=== PATIENT | female | born 1980 | race American Indian/Alaskan Native ===

== ENCOUNTER 2017-12-29 14:23 | Emergency (ER) | payer OTHER, SELFPAY ==
--- NOTE | 2017-12-29 16:45 | RAD REPORT ---
EXAM DESCRIPTION: RAD - Foot Right 3 View - 12/29/2017 4:25 pm CLINICAL HISTORY: Right foot pain COMPARISON: None. FINDINGS: Prominent calcaneal spurs are noted. No acute fracture or dislocation is seen. No aggressi ve marrow lesion. Continued clinical concern for possible stress fracture would warrant MRI foot eval uation, which is most sensitive imaging study for that condition.
--- NOTE | 2017-12-29 16:59 | EDPHYS ---
Physician Documentation [facility] Name: Sweta Dai Age: 37 yrs Sex: Female : 1980 Arrival Date: 12/29/2017 Time: 14:25 Bed 9 Private MD: ED Physician Lit Luu HPI: 12/29 16:57 This 37 yrs old Female presents to ER via Wheelchair with complaints of kb Foot Pain. 16:57 The patient presents with pain, that is acute. The complaints affect the right foot. kb Context: The problem was sustained outdoors, resulted from walking. Onset: The symptoms/episode began/occurred 3 year(s) ago, and became worse 2 day(s) ago. Modifying factors: The symptoms are alleviated by nothing, the symptoms are aggravated by weight bearing. Associated signs and symptoms: The patient has no apparent associated signs or symptoms. Severity of symptoms: At their worst the symptoms were moderate, in the emergency department the symptoms are unchanged. The patient has not experienced similar symptoms in the past. The patient has not recently seen a physician. Historical: - Allergies: 14:38 Lyrica; la1 14:38 Toradol; la1 14:38 Lisinopril; la1 14:38 BuSpar; la1 14:38 Paxil; la1 - PMHx: 14:38 Fibromyalgia; cervial stenosis; neuropathy; slipped disk; la1 - Immunization history:: Adult Immunizations up to date. - Social history:: Smoking status: Patient/guardian denies using tobacco. ROS: 16:56 Constitutional: Negative for fever, chills, and weight loss, Cardiovascular: Negative kb for chest pain, palpitations, and edema, Respiratory: Negative for shortness of breath, cough, wheezing, and pleuritic chest pain, Abdomen/GI: Negative for abdominal pain, nausea, vomiting, diarrhea, and constipation, Skin: Negative for injury, rash, and discoloration, Neuro: Negative for headache, weakness, numbness, tingling, and seizure. 16:56 MS/extremity: Positive for pain, of the lateral side of right foot. Exam: 16:56 Constitutional: This is a well developed, well nourished patient who is awake, alert, kb and in no acute distress. Head/Face: Normocephalic, atraumatic. Chest/axilla: Normal chest wall appearance and motion. Nontender with no deformity. No lesions are appreciated. Cardiovascular: Regular rate and rhythm with a normal S1 and S2. No gallops, murmurs, or rubs. Normal PMI, no JVD. No pulse deficits. Respiratory: Lungs have equal breath sounds bilaterally, clear to auscultation and percussion. No rales, rhonchi or wheezes noted. No increased work of breathing, no retractions or nasal flaring. Abdomen/GI: Soft, non-tender, with normal bowel sounds. No distension or tympany. No guarding or rebound. No evidence of tenderness throughout. Skin: Warm, dry with normal turgor. Normal color with no rashes, no lesions, and no evidence of cellulitis. MS/ Extremity: Pulses equal, no cyanosis. Neurovascular intact. Full, normal range of motion. Neuro: Awake and alert, GCS 15, oriented to person, place, time, and situation. Cranial nerves II-XII grossly intact. Motor strength 5/5 in all extremities. Sensory grossly intact. Cerebellar exam normal. Normal gait. Vital Signs: 14:38 BP 112 / 96; Pulse 85; Resp 16; Temp 97.2; Pulse Ox 100% on R/A; Weight 134.26 kg; la1 Height 5 ft. 4 in. (162.56 cm); 14:38 Body Mass Index 50.81 (134.26 kg, 162.56 cm) la1 MDM: 15:30 Patient medically screened. [facility] 16:56 Data reviewed: vital signs, nurses notes. Data interpreted: Pulse oximetry: on room air kb is 100 %. Interpretation: normal. Counseling: I had a detailed discussion with the patient and/or guardian regarding: the historical points, exam findings, and any diagnostic results supporting the discharge/admit diagnosis, radiology results, the need for outpatient follow up, a orthopedic surgeon, to return to the emergency department if symptoms worsen or persist or if there are any questions or concerns that arise at home. 12/29 15:39 Order name: Foot Right 3 View XRAY; Complete Time: 16:54 kb Administered Medications: 17:18 Drug: traMADol 50 mg Route: PO; la1 17:18 Follow up: Response: Medication administered at discharge. [facility] Disposition: 12/30 08:57 Co-signature as Attending Physician, Lit Luu MD I agree with the assessment and cole plan of care. Disposition: 12/29/17 16:59 Discharged to Home. Impression: Pain in right foot. - Condition is Stable. - Discharge Instructions: Musculoskeletal Pain. - Medication Reconciliation Form, Thank You Letter, Antibiotic Education, Prescription Opioid Use form. - Follow up: Emergency Department; When: As needed; Reason: Worsening of condition. Follow up: Private Physician; When: 2 - 3 days; Reason: Recheck today's complaints, Continuance of care, Re-evaluation by your physician. Signatures: Dispatcher [employer] EDElena Allred, TOBACCO STRIPPER HAND-C LUNA-Lit Diez MD MD cha Attema, Lee, RN RN la1
--- NOTE | 2017-12-29 16:59 | ER ---
Nurse's Notes [facility] Name: Sweta Dai Age: 37 yrs Sex: Female : 1980 Arrival Date: 12/29/2017 Time: 14:25 Bed 9 Private MD: Diagnosis: Pain in right foot Presentation: 12/29 14:36 Presenting complaint: Patient states: I think I have a stress fracture in my right la1 foot. Pain for the past few days. Transition of care: patient was not received from another setting of care. Onset of symptoms was December 29, 2017. Initial Sepsis Screen: Does the patient meet any 2 criteria? No. Patient's initial sepsis screen is negative. Does the patient have a suspected source of infection? No. Patient's initial sepsis screen is negative. Care prior to arrival: None. 14:36 Method Of Arrival: Wheelchair la1 14:36 Acuity: MIRA 4 la1 Historical: - Allergies: 14:38 Lyrica; la1 14:38 Toradol; la1 14:38 Lisinopril; la1 14:38 BuSpar; la1 14:38 Paxil; la1 - PMHx: 14:38 Fibromyalgia; cervial stenosis; neuropathy; slipped disk; la1 - Immunization history:: Adult Immunizations up to date. - Social history:: Smoking status: Patient/guardian denies using tobacco. Screenin:12 Abuse screen: Denies threats or abuse. Nutritional screening: No deficits noted. la1 Tuberculosis screening: No symptoms or risk factors identified. Fall Risk None identified. Assessment: 17:11 General: Appears in no apparent distress. Behavior is calm, cooperative. Pain: la1 Complains of pain in lateral side of right foot. Neuro: Level of Consciousness is awake, alert, obeys commands, Oriented to person, place, time, situation. Cardiovascular: Capillary refill < 3 seconds Patient's skin is warm and dry. Respiratory: Airway is patent Respiratory effort is even, unlabored. GI: No signs and/or symptoms were reported involving the gastrointestinal system. : No signs and/or symptoms were reported regarding the genitourinary system. Musculoskeletal: Circulation, motion, and sensation intact. Vital Signs: 14:38 BP 112 / 96; Pulse 85; Resp 16; Temp 97.2; Pulse Ox 100% on R/A; Weight 134.26 kg; la1 Height 5 ft. 4 in. (162.56 cm); 14:38 Body Mass Index 50.81 (134.26 kg, 162.56 cm) la1 ED Course: 14:25 Patient arrived in ED. as 14:37 Triage completed. la1 14:38 Arm band placed on left wrist. la1 15:27 Elena Lester FNP-C is [facility]. kb 15:27 Lit Luu MD is Attending Physician. kb 16:21 X-ray completed. Portable x-ray completed in exam room. Patient tolerated procedure ag1 well. 16:25 Foot Right 3 View XRAY In Process Unspecified. EDMS 17:12 Call light in reach. la1 17:12 No provider procedures requiring assistance completed. Patient did not have IV access la1 during this emergency room visit. Administered Medications: 17:18 Drug: traMADol 50 mg Route: PO; la1 17:18 Follow up: Response: Medication administered at discharge. la1 Outcome: 16:59 Discharge ordered by . kb 17:18 Discharged to home ambulatory. la1 17:18 Condition: stable 17:18 Discharge instructions given to patient, Instructed on discharge instructions, follow up and referral plans. Demonstrated understanding of instructions, follow-up care. 17:18 Patient left the ED. la1 Signatures: Dispatcher [employer] EDKY Elena Lester FNP-C FNP-Ckb Martinez, Amelia as Attema, Lee RN RN la1 Qing Moffett ag1
[2017-12-29] MEDS ORDERED: TRAMADOL HCL 50 MG TAB ONE (17:13)
== END 2017-12-29 17:18 | disposition home or self-care (01) ==
LOC: ER 14:23
DX: M79.671 Pain in right foot (principal)
CPT/HCPCS: 99283

== ENCOUNTER 2018-01-08 12:56 | Inpatient (IN) | payer SELFPAY ==
[2018-01-08] MEDS ORDERED: MORPHINE 4 MG/ML SYR ONE ×2 (15:45→20:28)
[2018-01-08] MEDS ORDERED: NA CHLORIDE 0.9% 1,000 ML ONE ×2 (15:46→19:29)
[2018-01-08] MEDS ORDERED: ONDANSETRON 4 MG/2 ML VIAL ONE (15:46)
[2018-01-08 15:51] LABS: Absolute Lymphocytes (CBC) 1.9 K/uL (0.7-4.9); Absolute Monocytes 0.5 K/uL (0.1-1.3); Basophils % 0.7 % (0-1.3); Eosinophils % 1.3 % (0-4.4); Hematocrit 39.3 % (36.0-45.0); Lymphocytes % 22.5 % (15.3-44.8); MCH 27.8 pg (27.0-35.0); MCV 84.1 fL (80-100); MPV 9.2 fL (7.6-11.3); Monocytes % 5.5 % (3.3-12.3); RBC Red Blood Cell Count 4.67 M/uL (3.86-4.86)
[2018-01-08 16:09] LABS: Bicarbonate 26 mEq/L (21-31); Glucose Level 89 mg/dL (65-120); Lipase 25 U/L (22-51); Potassium 3.3 mEq/L (3.6-5.0); Sodium Level 137 mEq/L (135-145)
[2018-01-08 16:15] LABS: ALT/SGPT 20 IU/L (10-60); AST/SGOT 23 IU/L (10-42); Albumin 3.6 g/dL (3.2-5.5); Alkaline Phosphatase 52 IU/L (42-121); Amylase Level 17 U/L (28-100); BUN Blood Urea Nitrogen 9 mg/dL (6-20); Bilirubin Direct 0.1 mg/dL (0-0.2); Bilirubin Total 0.6 mg/dL (0.3-1.2); Protein, Total 6.8 g/dL (6.0-8.3)
--- NOTE | 2018-01-08 16:36 | RAD REPORT ---
EXAM DESCRIPTION: CT - Stone Protocol - 01/08/2018 4:29 pm CLINICAL HISTORY: Flank pain. Right upper quadrant pain. COMPARISON: None. TECHNIQUE: Axial images were obtained without oral or IV contrast. Lack of contrast limits solid org an and vascular assessment. The [id number] spans the entirety of the system partially obscuring uppermost abdomen and lung bases. Coronal reformatted images were obtained and reviewed. All CT scans are performed using dose optimization technique as appropriate and may include automated exposure control or mA/KV adjustment according to patient size. FINDINGS: The lower lung alegria are clear. Imaged portions of the liver and spleen show no suspicious findings on non-contrast imaging. The panc reas and adrenal glands are normal. No pathologic lymphadenopathy in the abdomen or pelvis. No urinary tract stones or obstructive uropathy. No bowel obstruction, free air, free fluid or abscess. Normal appendix noted. No significant bony abnormality. The left ovary appears prominent in size measuring 5.3 x 4.3 cm. IMPRESSION: No urinary tract stones or obstructive uropathy. Prominent left ovary suspected in the left adnexal region measuring 5.3 x 4.3 cm. Nonemergent pelvic ultrasound followup is suggested for further assessment.
[2018-01-08 16:45] LABS: Urine Blood NEGATIVE (NEG); Urine Glucose NEGATIVE (NEG); Urine Protein NEGATIVE (NEG); Urine Specific Gravity 1.025 (1.005-1.030)
[2018-01-08 16:54] LABS: Urine Amorphous Sediment 1+ /HPF (NONE SEEN); Urine Bacteria <20 /HPF (<20); Urine Culture Reflex Order NOT NEEDED; Urine Mucus 1+ /HPF (NONE SEEN); Urine RBC <5 /HPF (NONE SEEN)
--- NOTE | 2018-01-08 18:49 | RAD REPORT ---
EXAM DESCRIPTION: US - Abdomen Exam Limited - 01/08/2018 5:56 pm CLINICAL HISTORY: Abdominal pain. COMPARISON: None. FINDINGS: The gallbladder contains many stones. The gallbladder wall is not thickened. The common bile duct measures 6.5 millimeters IMPRESSION: Cholelithiasis without evidence of cholecystitis Mild dilatation of the common bile duct may be secondary to a nonvisualized stone within the duct
[2018-01-08] MEDS ORDERED: METRONIDAZOLE 500mg IVPB 500 MG/100 ML BAG IV ONE (19:42)
[2018-01-08] MEDS ORDERED: CIPROFLOXACIN 400mg IV 400 MG/200 ML BAG IV ONE (19:42)
--- NOTE | 2018-01-08 19:42 | EDPHYS ---
Physician Documentation [facility] Name: Sweta Dai Age: 37 yrs Sex: Female : 1980 Arrival Date: 01/08/2018 Time: 12:59 Bed 30 Private MD: None, None ED Physician Dontrell Griffin HPI: 01/08 15:30 This 37 yrs old Female presents to ER via Wheelchair with complaints of cp Abdominal Pain. 15:30 The patient presents with abdominal pain in the right upper quadrant. cp 15:30 Onset: The symptoms/episode began/occurred this morning. cp 15:30 The symptoms radiate to right back. Associated signs and symptoms: Pertinent positives: cp nausea, vomiting. Modifying factors: the symptoms are aggravated by pressure. IT COMPLIANCE MANAGER: 01/09 00:06 sully rk2 Historical: - Allergies: 01/08 13:22 BuSpar; aj 13:22 Lisinopril; aj 13:22 Lyrica; aj 13:22 Paxil; aj 13:22 Toradol; aj - Home Meds: 13:22 None [Active]; aj - PMHx: 13:22 cervial stenosis; Fibromyalgia; neuropathy; slipped disk; Back pain; aj - PSHx: 13:22 ; aj - Immunization history:: Adult Immunizations up to date. - Social history:: Smoking status: Patient uses tobacco products, denies chronic smoking, but will smoke occasionally. ROS: 15:35 Constitutional: Negative for body aches, chills, fever, poor PO intake. cp 15:35 Eyes: Negative for injury, pain, redness, and discharge. cp 15:35 ENT: Negative for drainage from ear(s), ear pain, sore throat, difficulty swallowing, difficulty handling secretions. 15:35 Cardiovascular: Negative for chest pain, edema, palpitations. 15:35 Respiratory: Negative for cough, shortness of breath, wheezing. 15:35 Abdomen/GI: Positive for abdominal pain, nausea, of the right upper quadrant, Negative for diarrhea, constipation, active vomiting. 15:35 Back: Positive for radiated pain, of the right mid back and right low back. 15:35 : Negative for urinary symptoms, vaginal bleeding, vaginal discharge. 15:35 Skin: Negative for cellulitis, rash. 15:35 Neuro: Negative for altered mental status, headache, weakness. 15:35 All other systems are negative. Exam: 15:42 Head/Face: Normocephalic, atraumatic. cp 15:42 Constitutional: The patient appears alert, awake, non-diaphoretic, non-toxic, well developed, well nourished, uncomfortable. 15:42 Eyes: Periorbital structures: appear normal, Conjunctiva: normal, no exudate, no cp injection, Sclera: no appreciated abnormality, Lids and lashes: appear normal, bilaterally. 15:42 ENT: External ear(s): are unremarkable, Nose: is normal, Mouth: Lips: moist, Oral mucosa: pink and intact, moist, Posterior pharynx: is normal, airway is patent, no erythema, no exudate. 15:42 Neck: ROM/movement: is normal, is supple, without pain, no range of motions limitations, no nuchal rigidity. 15:42 Chest/axilla: Inspection: normal, Palpation: is normal, no crepitus, no tenderness. 15:42 Cardiovascular: Rate: normal, Rhythm: regular. 15:42 Respiratory: the patient does not display signs of respiratory distress, Respirations: normal, no use of accessory muscles, no retractions, no splinting, no tachypnea, labored breathing, is not present, Breath sounds: are clear throughout, no decreased breath sounds, no stridor, no wheezing. 15:42 Abdomen/GI: Inspection: obese Bowel sounds: active, all quadrants, Palpation: soft, in all quadrants, moderate abdominal tenderness, in the right upper quadrant, rebound tenderness, is not appreciated, voluntary guarding, is elicited in the right upper quadrant, involuntary guarding, is not appreciated. 15:42 Back: pain, that is moderate, of the right mid back and right low back, ROM is normal. 15:42 Skin: cellulitis, is not appreciated, no rash present. 15:42 Neuro: Orientation: to person, place \T\ time. Mentation: lucid, able to follow commands, Cerebellar function: is grossly normal, Motor: moves all fours, strength is normal, Sensation: no obvious gross deficits. Vital Signs: 13:22 BP 144 / 101; Pulse 70; Resp 20; Temp 98.0; Pulse Ox 99% on R/A; Weight 134.26 kg; aj Height 5 ft. 2 in. (157.48 cm); Pain 10/10; 17:00 BP 120 / 70; Pulse 82; Resp 17; Pulse Ox 99% on R/A; rk2 17:33 BP 112 / 90; Pulse 62; Resp 17; Pulse Ox 99% on R/A; rk2 18:30 BP 120 / 72; Pulse 67; Resp 18; Pulse Ox 98% on R/A; rk2 20:00 BP 140 / 102; Pulse 62; Resp 17; Pulse Ox 98% on R/A; rk2 21:00 BP 127 / 91; Pulse 64; Resp 17; Pulse Ox 98% on R/A; rk2 22:00 BP 136 / 75; Pulse 61; Resp 17; Pulse Ox 98% on R/A; rk2 13:22 Body Mass Index 54.14 (134.26 kg, 157.48 cm) aj MDM: 14:57 Patient medically screened. cp 19:28 Physician consultation: Nicholas Gregory MD was called at 19:29, was contacted at 19:29, snw regarding patient's condition. 19:30 Data reviewed: vital signs, nurses notes, lab test result(s), radiologic studies, CT cp scan, ultrasound. 19:30 Response to treatment: the patient's symptoms have mildly improved after treatment, and cp as a result, I will admit patient. 01/08 15:26 Order name: Amylase, Serum; Complete Time: 16:18 cp / 16:18 Interpretation: AJITH 17; Reviewed. cp 01/08 15:26 Order name: Basic Metabolic Panel; Complete Time: 16:18 cp 01/08 16:18 Interpretation: Normal except: K 3.3. cp / 15:26 Order name: CBC with Diff; Complete Time: 16:18 cp / 16:18 Interpretation: Normal except: RDW 16.2. cp / 15:26 Order name: Creatinine for Radiology; Complete Time: 16:18 cp / 15:26 Order name: Hepatic Function; Complete Time: 16:18 cp / 16:18 Interpretation: Within normal limits. cp / 15:26 Order name: Lipase; Complete Time: 16:18 cp 01/08 16:18 Interpretation: Within normal limits: LIP 25. cp 01/08 15:26 Order name: Urine Microscopic Only; Complete Time: 17:07 cp 05/02 17:07 Interpretation: Normal except: SQEPI 5-10; Reviewed. 01/08 15:26 Order name: CT Stone Protocol; Complete Time: 17:07 cp 01/08 17:08 Interpretation: Report reviewed. 01/08 16:24 Order name: Urine Dipstick--Ancillary (enter results); Complete Time: 17:07 [facility] 01/08 16:24 Order name: Urine --Ancillary (enter results); Complete Time: 17:07 2 01/08 17:20 Order name: US Abdomen Limited: RUQ; Complete Time: 19:06 cp 01/08 19:06 Interpretation: Report reviewed. 01/08 15:26 Order name: Urine Test (obtain specimen); Complete Time: 16:20 cp 01/08 15:26 Order name: IV Saline Lock; Complete Time: 16:20 cp 01/08 15:26 Order name: Labs collected and sent; Complete Time: 16:20 cp 01/08 15:26 Order name: Urine Dipstick-Ancillary (obtain specimen); Complete Time: 16:21 cp 01/08 19:29 Order name: NPO; Complete Time: 19:44 snw 01/08 21:57 Order name: CONS Physician Consult EDMS Administered Medications: 16:13 Drug: morphine 4 mg Route: IVP; Site: right antecubital; rk2 22:33 Follow up: Response: No adverse reaction rk2 16:13 Drug: Zofran 4 mg Route: IVP; Site: right antecubital; rk2 22:33 Follow up: Response: No adverse reaction rk2 16:13 Drug: NS 0.9% 1000 ml Route: IV; Rate: 1 bolus; Site: right antecubital; rk2 17:00 Follow up: Response: No adverse reaction; IV Status: Completed infusion rk2 19:49 Drug: metroNIDAZOLE 500 mg Volume: 100 ml; Route: IVPB; Infused Over: 30 mins; Site: rk2 right antecubital; 20:20 Follow up: Response: No adverse reaction; IV Status: Completed infusion rk2 20:35 Drug: NS 0.9% 1000 ml Route: IV; Rate: 125 ml/hr; Site: right antecubital; rk2 20:35 Drug: morphine 4 mg Route: IVP; Site: right antecubital; rk2 22:32 Follow up: Response: No adverse reaction rk2 20:35 Drug: Ciprofloxacin 400 mg Volume: 200 ml; Route: IVPB; Infused Over: 60 mins; Site: rk2 right antecubital; 21:35 Follow up: Response: No adverse reaction; IV Status: Completed infusion rk2 Disposition: 01/08/18 19:41 Hospitalization ordered by Nicholas Gregory for Inpatient Admission. Preliminary diagnosis is Choledocholithiasis. - Bed requested for Telemetry/MedSurg (Inpatient). - Status is Inpatient Admission. rk2 - Condition is Stable. - Problem is new. - Symptoms have improved. UTI on Admission? No Addendum: 01/10/2018 07:06 Co-signature as Attending Physician, Dontrell Griffin MD I agree with the assessment and w a plan of care. Signatures: Dispatcher [employer] EDMS Charlotte Mack RN RN kl Myers, Amanda, RN RN aj Therrien, Shelly, TANK HOUSE OPERATOR-C TANK HOUSE OPERATOR-Csnw Lit Montoya PA PA cp Appiah, William, MD MD wa Kidder, Rhonda, RN RN rk2 Corrections: (The following items were deleted from the chart) 01/08 21:47 19:41 Hospitalization Ordered by Nicholas Gregory MD for Inpatient Admission. Preliminary diagnosis is Choledocholithiasis. Bed requested for Telemetry/MedSurg (Inpatient). Status is Inpatient Admission. Condition is Stable. Problem is new. Symptoms have improved. UTI on Admission? No. [email or web address] 01/09 00:19 01/08 21:47 01/08/2018 19:41 Hospitalization Ordered by Nicholas Gregory MD for Inpatient rk2 Admission. Preliminary diagnosis is Choledocholithiasis. Bed requested for Telemetry/MedSurg (Inpatient). Status is Inpatient Admission. Condition is Stable. Problem is new. Symptoms have improved. UTI on Admission? No. kl
--- NOTE | 2018-01-08 19:42 | ER ---
Nurse's Notes [facility] Name: Sweta Dai Age: 37 yrs Sex: Female : 1980 Arrival Date: 01/08/2018 Time: 12:59 Bed 30 Private MD: None, None Diagnosis: Choledocholithiasis Presentation: 01/08 13:19 Presenting complaint: Patient states: Gallstones for 1.5 years. Patient reports she has aj not followed up with surgeon. Reports RUQ pain that has gotten worse after eating last night. Transition of care: patient was not received from another setting of care. Onset of symptoms was June 2017. Initial Sepsis Screen: Does the patient meet any 2 criteria? No. Patient's initial sepsis screen is negative. Does the patient have a suspected source of infection? No. Patient's initial sepsis screen is negative. Care prior to arrival: None. 13:19 Method Of Arrival: Wheelchair aj 13:19 Acuity: MIRA 3 aj 13:24 Note Patient refused ultrasound. aj 14:03 Note Patient observed sleeping comfortably in wheelchair, in NAD. aj 14:10 Note Attempted to reassess patient in lobby. Patient was not responsive to verbal aj stimuli, as name was spoken 4 times with no response. Sternal rub applied, patient woke up immediately and stated she is in pain. 14:26 Note Patient stated to me while I was bringing another patient back to a room, "why did aj you wake me up, this shit hurts." This nurse explained to patient that she had been unresponsive when her name was called 4 times and that I needed to assess her mental status. Triage Assessment: 13:22 General: Appears in no apparent distress. uncomfortable, obese, Behavior is calm, aj cooperative, appropriate for age. Pain: Complains of pain in right upper quadrant Pain currently is 10 out of 10 on a pain scale. Neuro: Level of Consciousness is awake, alert, obeys commands, Oriented to person, place, time, situation, Appropriate for age. Respiratory: Airway is patent Respiratory effort is even, unlabored, Respiratory pattern is regular, symmetrical. GI: Abdomen is obese, Reports upper abdominal pain, nausea. Derm: Skin is intact, is healthy with good turgor, Skin is pink, warm \\T\\ dry. normal. 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 - Social history:: Smoking status: Patient uses tobacco products, denies chronic smoking, but will smoke occasionally. Screenin:20 Abuse screen: Denies threats or abuse. rk2 16:20 Nutritional screening: No deficits noted. Tuberculosis screening: No symptoms or risk rk2 factors identified. Fall Risk None identified. Assessment: 17:00 General: Appears in no apparent distress. well developed, well nourished, Behavior is rk2 cooperative, crying. Pain: Complains of pain in abdomen and right upper quadrant. Neuro: Level of Consciousness is alert, obeys commands, Oriented to person, place, time, situation. Respiratory: Airway is patent Respiratory effort is even, unlabored. GI: Bowel sounds Abd is soft Abdomen is tender to palpation. Derm: Skin is pink, warm \\T\\ dry. 17:37 Reassessment: Pt. taken to US. rk2 18:40 Reassessment: Pt. resting in room \\T\\ this time... appears to be in no obvious distress. rk2 Still c/o of pain, notified provider. 19:30 Reassessment: Pt. resting in room \\T\\ this time, appears to be in no obvious distress... rk2 no needs voiced. Iv fluids infusing. 21:00 Reassessment: Pt. resting in room... appears to be in no distress. No needs voiced. No rk2 change from original assessment. 22:00 Reassessment: Pt. resting in room, family \\T\\ bedside. Pt. appears to be in no distress. rk2 No needs voiced. No change in assessment. 23:00 Reassessment: Pt. resting in room, family \\T\\ bedside... iv fluids infusing. Pt. appears rk2 to be in no obvious distress. No needs voiced \\T\\ this time. 01/09 00:01 Reassessment: Called report to Pauly, cem RN... pt. to be transported to room 213.rk2 Vital Signs: 01/08 13:22 BP 144 / 101; Pulse 70; Resp 20; Temp 98.0; Pulse Ox 99% on R/A; Weight 134.26 kg; aj Height 5 ft. 2 in. (157.48 cm); Pain 10/10; 17:00 BP 120 / 70; Pulse 82; Resp 17; Pulse Ox 99% on R/A; rk2 17:33 BP 112 / 90; Pulse 62; Resp 17; Pulse Ox 99% on R/A; rk2 18:30 BP 120 / 72; Pulse 67; Resp 18; Pulse Ox 98% on R/A; rk2 20:00 BP 140 / 102; Pulse 62; Resp 17; Pulse Ox 98% on R/A; rk2 21:00 BP 127 / 91; Pulse 64; Resp 17; Pulse Ox 98% on R/A; rk2 22:00 BP 136 / 75; Pulse 61; Resp 17; Pulse Ox 98% on R/A; rk2 13:22 Body Mass Index 54.14 (134.26 kg, 157.48 cm) aj ED Course: 12:59 Patient arrived in ED. mr 12:59 None, None is Private Physician. mr 13:21 Triage completed. aj 13:22 Arm band placed on right wrist. Patient placed in waiting room, Patient notified of wait time. 14:57 Lit Montoya PA is PHCP. cp 14:57 Dontrell Griffin MD is Attending Physician. cp 15:01 Sheron Seals, TAMY is Primary Nurse. rk2 15:59 Radiology exam delayed due to test not completed at this time. vr 16:20 Patient has correct armband on for positive identification. Bed in low position. Call rk2 light in reach. Side rails up X2. 16:21 CT Stone Protocol Sent. rk2 16:29 CT Stone Protocol In Process Unspecified. EDMS 17:37 US Abdomen Limited: RUQ Sent. rk2 17:56 US Abdomen Limited: RUQ In Process Unspecified. EDMS 17:57 Ultrasound completed. Patient tolerated well. cy 19:40 Nicholas Gregory MD is Hospitalizing Provider. cp 01/09 00:05 No provider procedures requiring assistance completed. Patient admitted, IV remains in rk2 place. Administered Medications: 01/08 16:13 Drug: morphine 4 mg Route: IVP; Site: right antecubital; rk2 22:33 Follow up: Response: No adverse reaction rk2 16:13 Drug: Zofran 4 mg Route: IVP; Site: right antecubital; rk2 22:33 Follow up: Response: No adverse reaction rk2 16:13 Drug: NS 0.9% 1000 ml Route: IV; Rate: 1 bolus; Site: right antecubital; rk2 17:00 Follow up: Response: No adverse reaction; IV Status: Completed infusion rk2 19:49 Drug: metroNIDAZOLE 500 mg Volume: 100 ml; Route: IVPB; Infused Over: 30 mins; Site: rk2 right antecubital; 20:20 Follow up: Response: No adverse reaction; IV Status: Completed infusion rk2 20:35 Drug: NS 0.9% 1000 ml Route: IV; Rate: 125 ml/hr; Site: right antecubital; rk2 20:35 Drug: morphine 4 mg Route: IVP; Site: right antecubital; rk2 22:32 Follow up: Response: No adverse reaction rk2 20:35 Drug: Ciprofloxacin 400 mg Volume: 200 ml; Route: IVPB; Infused Over: 60 mins; Site: rk2 right antecubital; 21:35 Follow up: Response: No adverse reaction; IV Status: Completed infusion rk2 Outcome: 19:41 Decision to Hospitalize by Provider. joseluis 01/09 00:05 Admitted to Med/surg accompanied by tech. rk2 Condition: good Instructed on the need for admit. 00:19 Patient left the ED. rk2 Signatures: Dispatcher [employer] EDSabine Campuzano, RN Anita Ferrell mr Simeon, Lit Mariee PA PA cp Yong, Chheannith cy Kidder, Rhonda, RN RN rk2
--- NOTE | 2018-01-08 20:23 | P.HP ---
Certification for Inpatient Patient admitted to: Inpatient With expected LOS: >2 Midnights Practitioner: I am a practitioner with admitting privileges, knowledge of patient current condition, hospital course, and medical plan of care. Services: Services provided to patient in accordance with Admission requirements found in Title 42 Section 412.3 of the Code of Federal Regulations Patient History Date of Service: 01/08/18 Reason for admission: symptomatic cholelithiasis History of Present Illness: Ms Dai is a 37 years old woman with history of cholelithiasis, ovarian cyst, chronic pain syndrome, who recently moved to [place] from [place], started 2 days ago with some nausea and vomiting. Then she start feeling RUQ pain, mostly constant with periods of exacerbation, rated 10/10. The pain radiate to the right flank. No history of fever, chills or sweating episodes. She has already diagnosed cholelithiasis, but never follow up with the surgeon for elective cholecystectomy. ER work up shows mostly normal lab work, with the exceptin of potassium which is low. CT abd/pelvis remarkable for right ovarian cyst about 5.3 x 4.3 cm, already known by the patient. Subsequent abdominal US showed cholelithiasis without evidence of cholecystitis, also CBD dilation 6.5 mm without stone seen. Allergies buspirone [From BuSpar] Allergy (Unverified 12/29/17 17:27) Unknown ketorolac Allergy (Unverified 12/29/17 17:27) Unknown lisinopril Allergy (Unverified 12/29/17 17:27) Unknown No Known Drug Allergies Allergy (Unverified 09/15/14 14:21) Unknown paroxetine [From Paxil] Allergy (Unverified 12/29/17 17:27) Unknown pregabalin [From Lyrica] Allergy (Unverified 12/29/17 17:27) Unknown - Past Medical/Surgical History -: chronic pain syndrome -: fibromyalgia -: cholelithiasis -: ovarian cyst -: - Family History Family History: Reviewed- Non-Contributory - Social History Smoking Status: Never smoker Alcohol use: No CD- Drugs: No Place of Residence: Home Review of Systems 10-point ROS is otherwise unremarkable Physical Examination - Physical Exam General: Alert, In no apparent distress HEENT: Atraumatic, PERRLA, Mucous membr. moist/pink, EOMI, Sclerae nonicteric Neck: Supple, 2+ carotid pulse no bruit, No LAD, Without JVD or thyroid abnormality Respiratory: Clear to auscultation bilaterally, Normal air movement Cardiovascular: Regular rate/rhythm, Normal S1 S2 Gastrointestinal: Normal bowel sounds, Tenderness (RUQ) Musculoskeletal: No tenderness Integumentary: No rashes Neurological: Normal speech, Normal strength at 5/5 x4 extr, Normal tone, Normal affect Lymphatics: No axilla or inguinal lymphadenopathy - Studies Laboratory Data (last 24 hrs) 01/08/18 15:38: Creatinine 0.53 01/08/18 15:38: WBC 8.6, Hgb 13.0, Hct 39.3, Plt Count 231 01/08/18 15:38: Sodium 137, Potassium 3.3 L, BUN 9, Creatinine 0.52, Glucose 89 , Total Bilirubin 0.6, AST 23, ALT 20, Alkaline Phosphatase 52, Amylase 17 L, Lipase 25 Assessment and Plan - Problems (Diagnosis) (1) Symptomatic cholelithiasis Current Visit: Yes Status: Acute (2) Ovarian cyst Current Visit: Yes Status: Acute Qualifiers: Laterality: right Qualified Code(s): N83.201 - Unspecified ovarian cyst, right side (3) Chronic pain syndrome Current Visit: Yes Status: Acute (4) Hypokalemia Current Visit: Yes Status: Acute - Plan The patient will be admitted to the hospital due to symptomatic cholecystitis. The CBD is dilated without evidence of obstructive stone. Will order an MRCP, surgery consult, empiric antibiotic treatment. Also consult OBG for right ovarian cyst. - Advance Directives Does patient have a Living Will: No Does patient have a Durable POA for Healthcare: No - Code Status/Comfort Care Code Status Assessed: Yes Code Status: Full Code
[2018-01-08] MEDS ORDERED: ONDANSETRON 4 MG/2 ML VIAL IV PRN (23:05)
[2018-01-08] MEDS ORDERED: ACETAMINOPHEN 500 MG TAB PO PRN (23:05)
[2018-01-09] MEDS: NA CHLORIDE 0.9% 1,000 ML IV SCH ×2 (01:13→08:44)
[2018-01-09] MEDS: Morphine 2 MG/2 ML SYR IV PRN ×2 (01:14→08:44)
[2018-01-09] MEDS: METRONIDAZOLE 500mg IVPB 500 MG/100 ML BAG IV SCH ×2 (01:14→08:44)
[2018-01-09 05:19] LABS: Absolute Lymphocytes (CBC) 2.1 K/uL (0.7-4.9); Absolute Monocytes 0.4 K/uL (0.1-1.3); Absolute Neutrophil 3.2 K/uL (1.8-8.0); Basophils % 0.8 % (0-1.3); Eosinophils % 2.6 % (0-4.4); Hematocrit 35.4 % (36.0-45.0); Lymphocytes % 35.9 % (15.3-44.8); MCH 27.3 pg (27.0-35.0); MCV 84.3 fL (80-100); MPV 9.5 fL (7.6-11.3); Monocytes % 7.2 % (3.3-12.3)
[2018-01-09 05:54] LABS: ALT/SGPT 15 IU/L (10-60); AST/SGOT 16 IU/L (10-42); Albumin 2.9 g/dL (3.2-5.5); Alkaline Phosphatase 43 IU/L (42-121); BUN Blood Urea Nitrogen 11 mg/dL (6-20); Bicarbonate 27 mEq/L (21-31); Bilirubin Total 0.8 mg/dL (0.3-1.2); Glucose Level 85 mg/dL (65-120); Potassium 3.8 mEq/L (3.6-5.0); Protein, Total 5.2 g/dL (6.0-8.3); Sodium Level 139 mEq/L (135-145)
[2018-01-09] MEDS ORDERED: CIPROFLOXACIN 400mg IV 400 MG/200 ML BAG IV SCH (07:00)
[2018-01-09] MEDS ORDERED: KCL 20 MEQ/100 mL IVPB 20 MEQ/100 ML BAG IV SCH (08:00)
--- NOTE | 2018-01-09 09:04 | RAD REPORT ---
EXAM DESCRIPTION: MRIAbdomen (Gallbladder) CLINICAL HISTORY: Abdominal pain. COMPARISON: 01/08/2018 CT and ultrasound studies. FINDINGS: Multiple gallstones are present in the gallbladder. No stone is seen within the common matt e duct. The common bile duct is not pathologically dilated. Pancreatic duct is not dilated. Limited T2 weighted sequencing through the abdomen demonstrates a normal appearance of the liver, spl een, pancreas, adrenal glands and kidneys. No bulky lymphadenopathy in the abdomen. No free fluid in the abdomen. IMPRESSION: Cholelithiasis without evidence of choledocholithiasis.
[2018-01-09] MEDS ORDERED: PROPOFOL 200 MG/20 ML VIAL IV ONE (10:12)
[2018-01-09] MEDS ORDERED: DEXAMETHASONE 10 MG/ML VIAL ONE (10:13)
[2018-01-09] MEDS ORDERED: MIDAZOLAM HCL 2 MG/2 ML INJ ONE ×2 (10:13→12:37)
[2018-01-09] MEDS ORDERED: LIDOCAINE 2% MPF 5 ML VIAL ONE (10:13)
[2018-01-09] MEDS ORDERED: ROCURONIUM 50 MG/5 ML VIAL IV ONE (10:14)
[2018-01-09] MEDS ORDERED: FENTANYL CITR 100 MCG/2 ML ONE ×2 (10:14→11:37)
[2018-01-09] MEDS ORDERED: MEPERIDINE HCL 25 MG/0.5 ML ONE (11:26)
--- NOTE | 2018-01-09 12:04 | P.OP ---
Mobile Phone Salesperson: Darrian ALFONSO Preoperative diagnosis: Acute Cholecystitis and Cholelithiasis Postoperative diagnosis: same with adhesions Primary procedure: Lap Leonila, PAUL Anesthesia: General Estimated blood loss: min Specimen: gb Findings: as above Complications: None Transferred to: Recovery Room Condition: Good
[2018-01-09] MEDS ORDERED: NEOSTIGMINE 1 MG/ML -5 ML SYRINGE ONE (12:05)
[2018-01-09] MEDS ORDERED: GLYCOPYRROLATE 0.2 MG/ML SYR ONE (12:05)
[2018-01-09] MEDS ORDERED: ONDANSETRON 4 MG/2 ML VIAL IV PRN (12:11)
[2018-01-09] MEDS ORDERED: HYDROCODONE/APAP 7.5/325 MG TAB PO PRN (12:11)
[2018-01-09] MEDS ORDERED: HYDROMORPHONE HCL 2 MG/ML inj IV PRN (12:11)
[2018-01-09] MEDS ORDERED: NA CHLORIDE 0.9% 1,000 ML ONE (12:22)
[2018-01-09] MEDS ORDERED: MEPERIDINE HCL 50 MG/ML AMP ONE (12:27)
[2018-01-09] MEDS ORDERED: PROMETHAZINE 25 MG/ML VIAL ONE (12:27)
[2018-01-09] MEDS ORDERED: ONDANSETRON 4 MG/2 ML VIAL ONE (12:33)
--- NOTE | 2018-01-09 14:37 | PREOPCON ---
Date of Consultation: 01/08/2018 Reason: Abdominal pain. History Of Present Illness: The patient is a 37-year-old female, who came in with a biliary colic th at has been going off and on for a year and half and latest symptoms started 2 days ago with right ba ck pain going to the right upper quadrant associated with nausea, vomiting. No diarrhea, constipatio n. No blood in her stool. No dysuria or hematuria. No sore throat, runny nose, cough, headaches, o r dizziness. No chest pain. No fever or chills. Review of Systems: Otherwise unremarkable. Past Medical History: Significant for chronic pain syndrome, ovarian cyst, cholelithiasis. She used to be hypertensive, is not currently. Past Surgical History: . Allergies: INCLUDE BUSPAR, KETORALAC, LISINOPRIL, PAXIL, AND LYRICA. Social History: She does smoke, is trying to quit. Does not drink. Family History: Significant for lung cancer. Physical Examination: Vital Signs: Stable. She is afebrile. General: She is awake, alert, and oriented x3. Head and neck: No evidence of icterus. Cranial nerves 2 through 12 are grossly within normal limits . No neck masses. No JVD. Throat clear. Neck is supple. Chest: Clear. Heart: S1, S2. Abdomen: Soft, positive right upper quadrant tenderness. No rebound, rigidity, or guarding. Extremities: Adequately perfused. Nontender. Neuro: Nonfocal. Diagnostic Data: White count is 5.9. There is no left shift. LFTs, amylase, and lipase are within normal limits. Electrolytes are within normal limits. Abdomen CT, ultrasound, and MRCP reviewed wit h the radiologist. The patient has extensive cholelithiasis. No evidence of choledocholithiasis. Assessment: Acute cholecystitis and cholelithiasis. Plan: Admit, n.p.o., IV fluid, IV antibiotic, to the OR for laparoscopic liss, possible open. The patient understands the risks, benefits, and alternatives and agrees to procedure. /MODL Voice ID: [id number] Report ID: [id number]
--- NOTE | 2018-01-09 16:19 | PN ---
Date of Progress Note: 01/09/2018 Subjective: The patient seen and examined. Chart reviewed and case discussed with Dr. Elena. The p atient is still having abdominal pain when she can eat. Review of Systems: Negative except as above. Medications: Reviewed. Physical Examination: Vital Signs: Temperature 97.7, heart rate 68, blood pressure 127/64, respirations 18, O2 saturation 99% on room air. General: Awake, alert, oriented x3. Some mild distress, morbidly obese female. CV: S1, S2. No murmurs. Regular rate and rhythm. Peripheral pulses present. Respiratory: Clear to auscultation bilaterally. No wheezing. Gastrointestinal: Abdomen is soft. Mild tenderness to palpation in the right upper quadrant. No re bound, guarding, or rigidity. Positive bowel sounds. Extremities: No clubbing, cyanosis, edema. Neurologic: Nonfocal. Laboratory Data: Sodium 139, potassium 3.8, chloride 108, CO2 27, BUN 11, creatinine 0.59, glucose 8 5, calcium 8.3, total bilirubin 0.8. AST 16, ALT 15, total protein 5.2, albumin 2.9, lipase 25. WBC 5.9, H and H 11.5 and 35.4, platelets 203. Urine test negative. MRCP shows cholelithiasi s without evidence of choledocholithiasis. Assessment And Plan: A 37-year-old female with: 1.Symptomatic cholelithiasis. 2.Ovarian cyst on the right. 3.Chronic pain syndrome. 4.Hypokalemia. 5.Morbid obesity, BMI 53.7. Plan: Anticipate cholecystectomy by Dr. Elena. We will monitor electrolytes, pain control. Continu e IV fluids. Keep n.p.o. until procedure. /MODL Voice ID: [id number] Report ID: [id number]
--- NOTE | 2018-01-09 16:22 | P.DS ---
Admission Date: 01/08/18 Discharge Date: 01/09/18 Disposition: ROUTINE DISCHARGE Discharge Condition: GOOD Reason for Admission: symptomatic cholelithiasis Consultations: General surgery Dr. Elena Procedures: Laparoscopic cholecystectomy Brief History of Present Illness: From H&P Ms Dai is a 37 years old woman with history of cholelithiasis, ovarian cyst, chronic pain syndrome, who recently moved to [place] from [place], started 2 days ago with some nausea and vomiting. Then she start feeling RUQ pain, mostly constant with periods of exacerbation, rated 10/10. The pain radiate to the right flank. No history of fever, chills or sweating episodes. She has already diagnosed cholelithiasis, but never follow up with the surgeon for elective cholecystectomy. ER work up shows mostly normal lab work, with the exceptin of potassium which is low. CT abd/pelvis remarkable for right ovarian cyst about 5.3 x 4.3 cm, already known by the patient. Subsequent abdominal US showed cholelithiasis without evidence of cholecystitis, also CBD dilation 6.5 mm without stone seen. Hospital Course: Patient is a morbidly obese 37-year-old female who was admitted for right quadrant abdominal pain. Patient was found to have cholelithiasis without acute cholecystitis. Patient had abdominal ultrasound CTs scan of the abdomen which found a incidental ovarian cyst which the patient is aware of and had an MRCP which was negative for ductal stone. Patient was seen by general surgery and was taken for laparoscopic cholecystectomy. Patient tolerated the procedure well. Patient was cleared for discharge as she was tolerating her diet without any further pain no nausea or vomiting. Patient is able to ambulate and was passing flatus. Patient was instructed on supplementing her diet going forward with fat soluble vitamins and to avoid fried fatty foods. Vital Signs/Physical Exam: Temp Pulse Resp BP Pulse Ox 97.6 F 78 18 138/65 98 01/09/18 13:00 01/09/18 13:00 01/09/18 13:00 01/09/18 13:00 01/09/18 13:00 Other Physical/Emotional Findings: PLEASE SEE PROGRESS NOTE DICTATED ON THE DAY OF DISCHARGE FOR PHYSICAL EXAM FINDINGS Laboratory Data at Discharge: WBC 5.9 K/uL (4.3-10.9) D 01/09/18 04:32 Hgb 11.5 g/dL (12.0-15.0) L 01/09/18 04:32 Hct 35.4 % (36.0-45.0) L 01/09/18 04:32 Plt Count 203 K/uL (152-406) 01/09/18 04:32 Sodium 139 mEq/L (135-145) 01/09/18 04:32 Potassium 3.8 mEq/L (3.6-5.0) 01/09/18 04:32 BUN 11 mg/dL (6-20) 01/09/18 04:32 Creatinine 0.59 mg/dL (0.44-1.00) 01/09/18 04:32 Glucose 85 mg/dL (65-120) 01/09/18 04:32 Total Bilirubin 0.8 mg/dL (0.3-1.2) 01/09/18 04:32 AST 16 IU/L (10-42) 01/09/18 04:32 ALT 15 IU/L (10-60) 01/09/18 04:32 Alkaline Phosphatase 43 IU/L (42-121) 01/09/18 04:32 Amylase 17 U/L (28-100) L 01/08/18 15:38 Lipase 25 U/L (22-51) 01/08/18 15:38 Home Medications: Codeine/APAP [Tylenol W/Codeine #3 tab] 1 tab PO Q4H PRN #40 tab 01/09/18 New Medications: Codeine/APAP [Tylenol W/Codeine #3 tab] 1 tab PO Q4H PRN #40 tab PRN Reason: Pain Patient Discharge Instructions: FOLLOW UP WITH PRIMARY CARE PHYSICIAN 2-3 DAYS. Follow up with surgeon Dr. Elena in 1 week for wound check. return to ER for worsening condition Diet: Saunders (Low-fat. Supplement with vitamins D E A and K) Activity: Ad manish Followup: Jim Elena MD [ACTIVE - CAN ADMIT] - 1 Week (Call for appointment) Time spent managing pt's care (in minutes): 32
--- NOTE | 2018-01-10 00:43 | OP ---
Date of Procedure: 01/09/2018 Surgeon: Jim Elena MD Instrument Sterilizer: KADEN Gutierrez. Preoperative Diagnoses: Acute cholecystitis and cholelithiasis. Postoperative Diagnoses: Acute cholecystitis and cholelithiasis with extensive adhesions. Procedure Performed: Laparoscopic cholecystectomy and lysis of adhesions. Estimated Blood Loss: Minimal. Specimen: Gallbladder. Finding: As above. Anesthesia: General. Complications: None. Disposition: The patient tolerated the procedure in stable condition and taken to the Recovery in go od general condition. Procedure In Detail: The patient was brought to the OR and placed in supine position. General anest hesia was begun. The patient was prepped and draped in the usual sterile fashion. Marcaine 0.5% was infiltrated locally. Then, a 2 cm supraumbilical midline incision was made. Subcutaneous tissue wa s divided. Fascia and plane were divided. #1 Vicryl stay suture was placed. Peritoneal cavity was entered with blunt dissection. A 12-mm trocar was placed into the peritoneal cavity. Laparoscopy re vealed extensive adhesions. One 5-mm trocar was placed, camera was switched, and another 5-mm trocar was placed in the right subcostal region and then ligature was used to lyse the adhesions around the umbilicus and around the port that was placed in and the third 5 mm trocar was placed and then lapar oscopy revealed acute inflammation of the gallbladder. Approximately, 10-15 minutes were taken in ly sing all of the adhesions. Fundus was retracted superiorly. Infundibulum was identified and retract ed inferolaterally. Cystic duct and cystic artery were clearly identified with blunt dissection. Cl ips were placed. Both structures were divided. Cautery was used to remove the gallbladder from the liver bed. Bleeding on the liver bed was controlled with cautery. The gallbladder was retrieved thr ough the umbilicus via an EndoCatch bag and the fascial defect had to be extended as this was a very large gallbladder. Subsequently, pneumoperitoneum was reestablished and then laparoscopy revealed no evidence of bleeding or bowel injury appreciated. Then, all trocars were removed under direct visio n. Then, #1 Vicryl was used to close the fascial defect. Subcutaneous wounds were irrigated. Bleed ing was controlled with cautery. A 3-0 chromic was used to approximate the subcutaneous tissue and s taples were used to close the skin. Sterile dressing was applied. The patient was awakened and take n to Recovery in good general condition. ABELINO/JIGNA Voice ID: [id number] Report ID: [id number]
== END 2018-01-09 16:20 | disposition home or self-care (01) | DRG 418 ==
LOC: ER 12:56 → ERHOLD 22:25 → 2ND 22:41
PROVIDERS: ADMIT Internal Medicine; ATTEND Internal Medicine
PROC: 0FT44ZZ Resection of Gallbladder, Percutaneous Endoscopic Approach (ICD-10-PCS; principal; 2018-01-09 09:30)
DX: K80.00 Calculus of gallbladder with acute cholecystitis without obstruction (principal); Z68.43 Body mass index [BMI] 50.0-59.9, adult; N83.201 Unspecified ovarian cyst, right side; E66.01 Morbid (severe) obesity due to excess calories; E87.6 Hypokalemia; G89.4 Chronic pain syndrome
CPT/HCPCS: 36415; 74176; 74181; 76377; 76705; 80048; 80053; 80076; 81003; 81015; 81025; 82150; 83690; 85025; 88304; 88305; 96361; 96365; 96367; 96375; 99285; J0744; J1100; J1170; J2175; J2250; J2270; J2405; J2550; J2710; J3010; J7030

== ENCOUNTER 2018-03-02 16:59 | Emergency (ER) | payer SELFPAY ==
[2018-03-02 17:37] LABS: Urine Blood NEGATIVE (NEG); Urine Glucose NEGATIVE (NEG); Urine Protein NEGATIVE (NEG); Urine Specific Gravity 1.015 (1.005-1.030); Urine pH 6.5 (5.0-7.0)
[2018-03-02 18:37] LABS: Absolute Lymphocytes (CBC) 1.3 K/uL (0.7-4.9); Absolute Monocytes 0.3 K/uL (0.1-1.3); Absolute Neutrophil 5.3 K/uL (1.8-8.0); Basophils % 0.8 % (0-1.3); Eosinophils % 2.1 % (0-4.4); Hematocrit 37.5 % (36.0-45.0); Lymphocytes % 18.4 % (15.3-44.8); MPV 8.7 fL (7.6-11.3); Monocytes % 4.6 % (3.3-12.3); RBC Red Blood Cell Count 4.46 M/uL (3.86-4.86)
[2018-03-02] MEDS ORDERED: NA CHLORIDE 0.9% 1,000 ML ONE (18:38)
[2018-03-02] MEDS ORDERED: ONDANSETRON 4 MG/2 ML VIAL ONE (18:38)
[2018-03-02] MEDS ORDERED: MORPHINE 4 MG/ML SYR ONE (18:38)
[2018-03-02] MEDS ORDERED: FAMOTIDINE 20 MG/2 ML VIAL IV ONE (18:38)
[2018-03-02 18:40] LABS: Protime INR 1.01
[2018-03-02 18:48] LABS: ALT/SGPT 25 U/L (12-78); AST/SGOT 13 U/L (15-37); Albumin 3.5 g/dL (3.4-5.0); Alkaline Phosphatase 73 U/L (45-117); BUN Blood Urea Nitrogen 9 mg/dL (7-18); Bicarbonate 27 mmol/L (21-32); Bilirubin Direct 0.1 mg/dL (0-0.2); Bilirubin Total 0.4 mg/dL (0.2-1.0); CKMB Creatine Kinase MB 3.1 ng/mL (0.3-3.6); Creatine Phosphokinase 135 U/L (26-192); Glucose Level 91 mg/dL (74-106); Magnesium 2.1 mg/dL (1.8-2.4); Potassium 3.5 mmol/L (3.5-5.1); Protein, Total 7.2 g/dL (6.4-8.2); Sodium Level 137 mmol/L (136-145)
--- NOTE | 2018-03-02 19:30 | RAD REPORT ---
EXAM DESCRIPTION: VAS - Extrem Venous W Compress Richard - 03/02/2018 6:14 pm CLINICAL HISTORY: Bilateral leg pain and swelling COMPARISON: None. TECHNIQUE: Real-time sonographic evaluation of the bilateral lower extremity deep venous systems was performed. FINDINGS: Normal compressibility, flow augmentation, phasic flow and spontaneous flow are identified in the left and right lower extremity deep venous systems. Common femoral, superficial femoral, popl iteal, posterior tibial and dorsalis pedis veins are clear of thrombus or acute finding. No intralumi nal filling defects seen. IMPRESSION: No DVT in either lower extremity.
--- NOTE | 2018-03-02 19:34 | RAD REPORT ---
EXAM DESCRIPTION: RAD - Chest Single View - 03/02/2018 6:24 pm CLINICAL HISTORY: Chest pain radiating to the left arm COMPARISON: None. TECHNIQUE: AP portable chest image was obtained 2021 . FINDINGS: No focal mass, consolidation or failure finding. Interstitial markings are prominent but p robably baseline. Minimal interstitial edema or infiltrate could be masked. Heart and vasculature are normal. No measurable pleural effusion and no pneumothorax. No gross bony abnormality seen. No acute aortic findings suspected. IMPRESSION: Prominence of the interstitial markings favored to be baseline pattern. Minimal intersti tial edema or infiltrate could be masked.
[2018-03-02] MEDS ORDERED: LORazepam 2 MG/ML VIAL ONE (20:53)
[2018-03-02] MEDS ORDERED: ACETAMINOPHEN 500 MG TAB ONE (20:53)
--- NOTE | 2018-03-02 21:47 | EDPHYS ---
Physician Documentation [facility] Name: Sweta Dai Age: 37 yrs Sex: Female : 1980 Arrival Date: 03/02/2018 Time: 17:11 Bed 18 Private MD: ED Physician Lit Luu HPI: 03/02 17:45 This 37 yrs old Female presents to ER via EMS with complaints of chest cp pain. 17:45 The patient or guardian reports chest pain that is located primarily in the anterior cp chest wall, left. 17:45 The pain radiates to the left shoulder. cp 17:45 Associated signs and symptoms: Pertinent positives: headache, lower extremity pain, cp lower extremity swelling, shortness of breath, Pertinent negatives: abdominal pain, cough, palpitations, recent travel, syncope. The chest pain is described as sharp. Duration: The patient or guardian reports multiple episodes, that wax and wane, onset 3 days ago. Historical: - Allergies: 17:17 BuSpar; em 17:17 Toradol; em 17:17 Lisinopril; em 17:17 Lyrica; em 17:17 Paxil; em - PMHx: 17:17 Back pain; cervial stenosis; Fibromyalgia; neuropathy; slipped disk; Anxiety; em - PSHx: 17:17 Cholecystectomy; ; "tubal occlussion"; em - Immunization history:: Adult Immunizations not up to date. - Social history:: Smoking status: Patient uses tobacco products, denies chronic smoking, but will smoke occasionally. - Ebola Screening: : No symptoms or risks identified at this time. ROS: 17:50 Constitutional: Negative for body aches, chills, fever, poor PO intake. cp 17:50 Eyes: Negative for injury, pain, redness, and discharge. cp 17:50 ENT: Negative for drainage from ear(s), ear pain, sore throat, difficulty swallowing, difficulty handling secretions. 17:50 Cardiovascular: Positive for chest pain, Negative for edema, palpitations. 17:50 Respiratory: Positive for shortness of breath, Negative for cough, wheezing. 17:50 Abdomen/GI: Positive for nausea, Negative for abdominal pain, vomiting, diarrhea, constipation. 17:50 MS/extremity: Positive for pain, of the left arm, Negative for injury or acute deformity, decreased range of motion. 17:50 Skin: Negative for cellulitis, rash. 17:50 Neuro: Positive for headache, Negative for altered mental status, dizziness, syncope, near syncope, weakness. 17:50 All other systems are negative. Exam: 17:53 ECG was reviewed by the Attending Physician. cp 17:55 Constitutional: The patient appears in no acute distress, alert, awake, cp non-diaphoretic, non-toxic, well developed, well nourished, obese. 17:55 Head/Face: Normocephalic, atraumatic. Eyes: Pupils equal round and reactive to light, cp extra-ocular motions intact. Lids and lashes normal. Conjunctiva and sclera are non-icteric and not injected. Cornea within normal limits. Periorbital areas with no swelling, redness, or edema. ENT: Nares patent. No nasal discharge, no septal abnormalities noted. Tympanic membranes are normal and external auditory canals are clear. Oropharynx with no redness, swelling, or masses, exudates, or evidence of obstruction, uvula midline. Mucous membranes moist. 17:55 Neck: External neck: tenderness, that is mild, posterior neck, ROM/movement: limited range of motion, is not appreciated, Meningeal signs: are not present, nuchal rigidity, is not appreciated, Lymph nodes: no appreciated lymphadenopathy. 17:55 Chest/axilla: Inspection: normal, Palpation: is normal, no crepitus, no tenderness. 17:55 Cardiovascular: Rate: normal, Rhythm: regular, Pulses: Pulses are 2+ in right radial artery and left radial artery. Edema: mild bilateral lower legs, JVD: is not appreciated. 17:55 Respiratory: the patient does not display signs of respiratory distress, Respirations: labored breathing, is not present, accessory muscle usage, is absent, intercostal retractions, are absent, shallow respirations, are not present, Breath sounds: are clear throughout, no bronchial sounds, no decreased breath sounds, no wheezing. 17:55 Abdomen/GI: Inspection: obese Bowel sounds: active, all quadrants, Palpation: abdomen is soft and non-tender, in all quadrants, rebound tenderness, is not appreciated, voluntary guarding, is not appreciated, involuntary guarding, is not appreciated. 17:55 Back: pain, is absent, ROM is normal. 17:55 Skin: cellulitis, is not appreciated, no rash present. 17:55 Neuro: Orientation: to person, place \\T\\ time. Cerebellar function: is grossly normal, Motor: moves all fours, strength is normal, Sensation: no obvious gross deficits. 21:02 ECG was reviewed by the Attending Physician. cp Vital Signs: 17:18 BP 142 / 73; Pulse 67; Resp 18; Temp 98.6(O); Pulse Ox 100% on R/A; Weight 134.26 kg; em Height 5 ft. 4 in. (162.56 cm); Pain 7/10; 18:20 BP 124 / 76; Pulse 72; Resp 18; Pulse Ox 99% on R/A; em 20:12 BP 117 / 70; Pulse 55; Resp 18; Pulse Ox 99% on R/A; mt 20:51 BP 121 / 64; Pulse 50; Resp 16; Pulse Ox 98% on R/A; mt 21:38 BP 102 / 55; Pulse 59; Resp 17; Pulse Ox 99% on R/A; mt 17:18 Body Mass Index 50.81 (134.26 kg, 162.56 cm) em MDM: 17:28 Patient medically screened. cp 18:00 Differential diagnosis: abnormal EKG, acute myocardial infarction, anxiety, chest wall cp pain, congestive heart failure gastritis, myocarditis, pancreatitis, pneumonia, pneumothorax, pulmonary embolus, stable angina, unstable angina. 21:45 Data reviewed: vital signs, nurses notes, lab test result(s), EKG, radiologic studies, cp plain films, ultrasound, and as a result, I will discharge patient. 21:45 ED course: VSS. Pain improved with meds. Will discharge to home for continued cp monitoring. 03/02 17:32 Order name: Urine Dipstick--Ancillary (enter results); Complete Time: 19:14 bd 03/02 17:32 Order name: Urine --Ancillary (enter results); Complete Time: 19:14 bd 03/02 17:38 Order name: Basic Metabolic Panel; Complete Time: 19:14 cp 03/02 17:38 Order name: CBC with Diff; Complete Time: 19:14 cp 03/02 19:15 Interpretation: Normal except: DOTTIE% 74.1. cp 03/02 17:38 Order name: Ckmb; Complete Time: 19:14 cp 03/02 17:38 Order name: CPK; Complete Time: 19:14 cp 06/24 17:38 Order name: LFT's; Complete Time: 19:14 cp 06/24 19:15 Interpretation: Normal except: AST 13; GLOB 3.7; A/G 0.9. cp 06/24 17:38 Order name: Magnesium; Complete Time: 19:14 cp /24 17:38 Order name: PT-INR; Complete Time: 19:14 cp /24 17:38 Order name: Ptt, Activated; Complete Time: 19:14 cp /24 17:38 Order name: Troponin (emerg Dept Use Only); Complete Time: 19:14 cp /24 17:38 Order name: XRAY Chest (1 view); Complete Time: 19:41 cp /24 19:41 Interpretation: Report review. cp / 17:38 Order name: D-Dimer; Complete Time: 19:14 cp /24 20:51 Order name: Troponin I; Complete Time: 21:45 cp /24 17:24 Order name: EKG; Complete Time: 17:24 cp / 17:24 Order name: EKG - Nurse/Tech; Complete Time: 17:43 cp /24 17:38 Order name: Cardiac monitoring; Complete Time: 17:43 cp /24 17:38 Order name: IV Saline Lock; Complete Time: 19:15 cp /24 17:38 Order name: Labs collected and sent; Complete Time: 19:15 cp /24 17:38 Order name: O2 Per Protocol; Complete Time: 17:43 cp /24 17:38 Order name: O2 Sat Monitoring; Complete Time: 17:43 cp /24 17:38 Order name: Urine Dipstick-Ancillary (obtain specimen); Complete Time: 17:43 cp /24 17:38 Order name: US Extremity Venous W Compression Richard; Complete Time: 19:41 cp /24 19:41 Interpretation: Report reviewed. cp 03/02 20:51 Order name: EKG; Complete Time: 20:51 cp /24 20:51 Order name: EKG - Nurse/Tech; Complete Time: 21:00 cp EC:53 Rate is 57 beats/min. Rhythm is regular. MO interval is normal. QRS interval is normal. cp QT interval is normal. No ST changes noted. Interpreted by me. Reviewed by me. 21:02 Rate is 53 beats/min. Rhythm is regular. MO interval is normal. QRS interval is cp prolonged at 104 msec. QT interval is normal. No ST changes noted. Interpreted by me. Reviewed by me. Administered Medications: 18:40 Drug: Pepcid 20 mg Route: IVP; Site: left antecubital; iw 19:30 Follow up: Response: No adverse reaction ea 18:40 Drug: Zofran 4 mg Route: IVP; Site: left antecubital; iw 19:30 Follow up: Response: No adverse reaction ea 18:40 Drug: morphine 2 mg Route: IVP; Site: left antecubital; iw 19:30 Follow up: Response: No adverse reaction; Pain is decreased ea 18:43 Drug: NS 0.9% 1000 ml Route: IV; Rate: 1 bolus; Site: left antecubital; em 22:23 Follow up: Response: Marked relief of symptoms; IV Status: Completed infusion ea 20:58 Drug: Tylenol 1000 mg Route: PO; ea 22:23 Follow up: Response: No adverse reaction; Marked relief of symptoms ea 20:58 Drug: Ativan 0.5 mg Route: IVP; Site: right antecubital; ea 22:23 Follow up: Response: No adverse reaction; Marked relief of symptoms ea Disposition: 03/03 16:11 Co-signature as Attending Physician, Lit Luu MD I agree with the assessment and cole plan of care. Disposition: 03/02/18 21:46 Discharged to Home. Impression: Chest pain, unspecified, Shortness of breath. - Condition is Stable. - Discharge Instructions: Nonspecific Chest Pain, Shortness of Breath. - Prescriptions for Prednisone 20 mg Oral Tablet - take 2 tablet by ORAL route once daily for 5 days; 10 tablet. Albuterol Sulfate 90 mcg/actuation - inhale 1-2 puff by INHALATION route every 4-6 hours; 1 Inhaler. - Medication Reconciliation Form, Thank You Letter, Antibiotic Education, Prescription Opioid Use form. - Follow up: Private Physician; When: 1 - 2 days; Reason: Recheck today's complaints. - Problem is new. - Symptoms have improved. Signatures: Dispatcher [employer] Lit Lopez MD MD cha Munoz, Edgar, CLIENT SERVICE ASSOCIATE CLIENT SERVICE ASSOCIATE em Kyra Peck RN RN iw Page, Corey, PA PA cp Antunez, Sharon, RN RN ea Corrections: (The following items were deleted from the chart) 03/02 22:25 21:46 03/02/2018 21:46 Discharged to Home. Impression: Chest pain, unspecified; ea Shortness of breath. Condition is Stable. Forms are Medication Reconciliation Form, Thank You Letter, Antibiotic Education, Prescription Opioid Use. Follow up: Private Physician; When: 1 - 2 days; Reason: Recheck today's complaints. Problem is new. Symptoms have improved. cp
--- NOTE | 2018-03-02 21:47 | ER ---
Nurse's Notes [facility] Name: Sweta Dai Age: 37 yrs Sex: Female : 1980 Arrival Date: 03/02/2018 Time: 17:11 Bed 18 Private MD: Diagnosis: Chest pain, unspecified;Shortness of breath Presentation: 03/02 17:11 Presenting complaint: EMS states: c/o chest pain that starts in the center of chest and em radiates to the left arm for 3 days, today became worse with SOB, +N, -V. Transition of care: patient was not received from another setting of care. Onset of symptoms was February 27, 2018. Risk Assessment: Do you want to hurt yourself or someone else? Patient reports no desire to harm self or others. Initial Sepsis Screen: Does the patient meet any 2 criteria? RR > 20 per min. Does the patient have a suspected source of infection? No. Patient's initial sepsis screen is negative. Care prior to arrival: None. 17:11 Method Of Arrival: EMS: [facility] em 17:15 Acuity: [facility] 3 iw Historical: - Allergies: 17:17 BuSpar; em 17:17 Toradol; em 17:17 Lisinopril; em 17:17 Lyrica; em 17:17 Paxil; em - PMHx: 17:17 Back pain; cervial stenosis; Fibromyalgia; neuropathy; slipped disk; Anxiety; em - PSHx: 17:17 Cholecystectomy; ; "tubal occlussion"; em - Immunization history:: Adult Immunizations not up to date. - Social history:: Smoking status: Patient uses tobacco products, denies chronic smoking, but will smoke occasionally. - Ebola Screening: : No symptoms or risks identified at this time. Screenin:17 Abuse screen: Denies threats or abuse. Nutritional screening: No deficits noted. em Tuberculosis screening: No symptoms or risk factors identified. Fall Risk None identified. Assessment: 17:20 General: Appears in no apparent distress. uncomfortable, Behavior is calm, cooperative. em Pain: Complains of pain in mid-sternal area Pain currently is 7 out of 10 on a pain scale. Neuro: Level of Consciousness is awake, alert, obeys commands, Oriented to person, place, time, situation. Cardiovascular: Capillary refill < 3 seconds. Cardiovascular: Reports nausea, Denies diaphoresis, shortness of breath, vomiting. Respiratory: Airway is patent Respiratory effort is even, unlabored, Respiratory pattern is regular, symmetrical. Derm: Skin is intact, Skin is pink, warm \\T\\ dry. Musculoskeletal: Range of motion:. 18:25 Reassessment: Patient appears in no apparent distress at this time. Patient and/or em family updated on plan of care and expected duration. Pain level reassessed. Patient is alert, oriented x 3, equal unlabored respirations, skin warm/dry/pink. 18:55 Reassessment: Patient appears in no apparent distress at this time. I agree with above iw assessment by Zeeshan Mosher LVN. 19:30 General: Appears in no apparent distress. Behavior is calm, cooperative. Pain: ea Complains of pain in headache. Neuro: Level of Consciousness is awake, alert, obeys commands, Oriented to person, place, time, situation. Neuro: Cardiovascular: Heart tones S1 S2 present Patient's skin is warm and dry. Respiratory: Airway is patent Respiratory effort is even, unlabored, Respiratory pattern is regular, symmetrical, Breath sounds are clear bilaterally. GI: No signs and/or symptoms were reported involving the gastrointestinal system. : No signs and/or symptoms were reported regarding the genitourinary system. EENT: No signs and/or symptoms were reported regarding the EENT system. Derm: Skin is pink, warm \\T\\ dry. Musculoskeletal: Circulation, motion, and sensation intact. 20:55 Reassessment: Patient and/or family updated on plan of care and expected duration. Pain ea level reassessed. Patient is alert, oriented x 3, equal unlabored respirations, skin warm/dry/pink. Pt complaining of headache, provider notified, medication administered. Pt tolerated well. 21:50 Reassessment: Patient and/or family updated on plan of care and expected duration. Pain ea level reassessed. Patient is alert, oriented x 3, equal unlabored respirations, skin warm/dry/pink. 22:15 Reassessment: Patient and/or family updated on plan of care and expected duration. Pain ea level reassessed. Patient is alert, oriented x 3, equal unlabored respirations, skin warm/dry/pink. Discharge instructions given to patient, verbalized the understanding of instruction. Vital Signs: 17:18 BP 142 / 73; Pulse 67; Resp 18; Temp 98.6(O); Pulse Ox 100% on R/A; Weight 134.26 kg; em Height 5 ft. 4 in. (162.56 cm); Pain 7/10; 18:20 BP 124 / 76; Pulse 72; Resp 18; Pulse Ox 99% on R/A; em 20:12 BP 117 / 70; Pulse 55; Resp 18; Pulse Ox 99% on R/A; mt 20:51 BP 121 / 64; Pulse 50; Resp 16; Pulse Ox 98% on R/A; mt 21:38 BP 102 / 55; Pulse 59; Resp 17; Pulse Ox 99% on R/A; mt 17:18 Body Mass Index 50.81 (134.26 kg, 162.56 cm) em ED Course: 17:11 Patient arrived in ED. em 17:17 Patient has correct armband on for positive identification. Bed in low position. Call em light in reach. 17:20 Arm band placed on. em 17:23 Lit Montoya PA is PHCP. cp 17:24 Lit Luu MD is Attending Physician. cp 17:46 Zeeshan Mosher LVN is Primary Nurse. em 18:00 Urine collected: clean catch specimen, cloudy, mingo colored, EKG done, by ED staff. jb1 18:12 Ultrasound completed. Patient tolerated well. sg3 18:14 US Extremity Venous W Compression Richard In Process Unspecified. EDMS 18:15 Initial lab(s) drawn, by oh, sent to lab. jb1 18:23 X-ray completed. Portable x-ray completed in exam room. Patient tolerated procedure kp1 well. 18:24 XRAY Chest (1 view) In Process Unspecified. EDMS 18:37 Inserted saline lock: 22 gauge in right antecubital area, using aseptic technique. jb1 Blood collected. 19:17 Triage completed. iw 19:21 No provider procedures requiring assistance completed. em 22:15 IV discontinued, intact, bleeding controlled, No redness/swelling at site. Pressure ea dressing applied. Administered Medications: 18:40 Drug: Pepcid 20 mg Route: IVP; Site: left antecubital; iw 19:30 Follow up: Response: No adverse reaction ea 18:40 Drug: Zofran 4 mg Route: IVP; Site: left antecubital; iw 19:30 Follow up: Response: No adverse reaction ea 18:40 Drug: morphine 2 mg Route: IVP; Site: left antecubital; iw 19:30 Follow up: Response: No adverse reaction; Pain is decreased ea 18:43 Drug: NS 0.9% 1000 ml Route: IV; Rate: 1 bolus; Site: left antecubital; em 22:23 Follow up: Response: Marked relief of symptoms; IV Status: Completed infusion ea 20:58 Drug: Tylenol 1000 mg Route: PO; ea 22:23 Follow up: Response: No adverse reaction; Marked relief of symptoms ea 20:58 Drug: Ativan 0.5 mg Route: IVP; Site: right antecubital; ea 22:23 Follow up: Response: No adverse reaction; Marked relief of symptoms ea Outcome: 21:46 Discharge ordered by MD. cp 22:14 Discharged to home ambulatory. ea 22:14 Condition: improved 22:14 Discharge instructions given to patient, Instructed on discharge instructions, follow up and referral plans. medication usage, Demonstrated understanding of instructions, follow-up care, medications, Prescriptions given X 2. 22:25 Patient left the ED. ea Signatures: Dispatcher [employer] EDAlexis Davis jb1 Zeeshan Mosher, PERCHER PERCHER Kyra Keita, RN RN Lit Rincon PA PA cp Thompson, Moriah mt Poole, Kathy kp1 Sharon Rangel RN RN Kerry Mendiola sg3
--- NOTE | 2018-03-03 06:52 | EKG ---
Test Date: 2018-03-02 Test Time: 20:56:46 Cabinet Mounter: SREEKANTH MEASUREMENT RESULTS: Intervals: Rate: 53 RI: 172 QRSD: 104 QT: 450 QTc: 422 [place]: P: 53 RI: 172 QRS: 23 T: 14 INTERPRETIVE STATEMENTS: Sinus bradycardia Low voltage QRS Cannot rule out Anterior infarct, age undetermined Abnormal ECG Compared to ECG 03/02/2018 17:46:56 Myocardial infarct finding now present Electronically Signed On 03-03-18 06:51:50 CDT by Roland Colindres
--- NOTE | 2018-03-03 06:53 | EKG ---
Test Date: 2018-03-02 Test Time: 17:46:56 Medical Lab Director: ANH MEASUREMENT RESULTS: Intervals: Rate: 57 MN: 174 QRSD: 98 QT: 444 QTc: 432 [place]: P: 18 MN: 174 QRS: 20 T: 11 INTERPRETIVE STATEMENTS: Sinus bradycardia Low voltage QRS Borderline ECG No previous ECG available for comparison Electronically Signed On 03-03-18 06:52:18 CDT by Roland Colindres
== END 2018-03-02 22:25 | disposition home or self-care (01) ==
LOC: ER 16:59
DX: R06.02 Shortness of breath (principal); Z72.0 Tobacco use; Z88.6 Allergy status to analgesic agent; Z88.8 Allergy status to other drugs, medicaments and biological substances
CPT/HCPCS: 36415; 71045; 80048; 80076; 81003; 81025; 82550; 82553; 83735; 84484; 85025; 85379; 85610; 85730; 93005; 93970; 99284; J2405; J7030

== ENCOUNTER 2018-03-19 11:07 | Emergency (ER) | payer SELFPAY ==
[2018-03-19 11:45] LABS: Urine Blood 3+ (NEG); Urine Glucose NEGATIVE (NEG); Urine Protein NEGATIVE (NEG); Urine pH 8.5 (5.0-7.0)
--- NOTE | 2018-03-19 11:46 | EDPHYS ---
Physician Documentation [facility] Name: Sweta Dai Age: 37 yrs Sex: Female : 1980 Arrival Date: 03/19/2018 Time: 11:11 Bed 17 Private MD: None, None ED Physician Miko Bray HPI: 03/19 12:00 This 37 yrs old Female presents to ER via Ambulatory with complaints of pm1 Numbness Of Right Arm and Right Arm Pain. 12:00 The patient or guardian complains of pain. The complaints affect the right arm. pm1 Context: resulted from possible carpal tunnel. Onset: The symptoms/episode began/occurred 1 month(s) ago. Treatment prior to arrival includes: no previous treatment. Modifying factors: The symptoms are alleviated by nothing. the symptoms are aggravated by nothing. Associated signs and symptoms: Pertinent positives: numbness, tingling, Pertinent negatives: decreased range of motion, deformity. Severity of symptoms: in the emergency department the symptoms are actually worse. The patient has experienced similar episodes in the past, a few times, similar to prior carpal tunnel episodes. The patient has not recently seen a physician. 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 - Social history:: Smoking status: Patient uses tobacco products, smokes one-half pack cigarettes per day, Patient/guardian denies using alcohol. - Ebola Screening: : Patient negative for fever greater than or equal to 101.5 degrees Fahrenheit, and additional compatible Ebola Virus Disease symptoms Patient denies exposure to infectious person Patient denies travel to an Ebola-affected area in the 21 days before illness onset. ROS: 12:00 Constitutional: Negative for fever, chills, and weight loss, Eyes: Negative for injury, pm1 pain, redness, and discharge, ENT: Negative for injury, pain, and discharge, Neck: Negative for injury, pain, and swelling, Cardiovascular: Negative for chest pain, palpitations, and edema, Respiratory: Negative for shortness of breath, cough, wheezing, and pleuritic chest pain, Abdomen/GI: Negative for abdominal pain, nausea, vomiting, diarrhea, and constipation, Back: Negative for injury and pain. 12:00 Skin: Negative for injury, rash, and discoloration, Neuro: Negative for headache, weakness, numbness, tingling, and seizure. 12:00 MS/extremity: Positive for pain, paresthesias, tingling, of the right arm. Exam: 12:00 Constitutional: This is a well developed, well nourished patient who is awake, alert, pm1 and in no acute distress. Head/Face: Normocephalic, atraumatic. Eyes: Pupils equal round and reactive to light, extra-ocular motions intact. Lids and lashes normal. Conjunctiva and sclera are non-icteric and not injected. Cornea within normal limits. Periorbital areas with no swelling, redness, or edema. ENT: Nares patent. No nasal discharge, no septal abnormalities noted. Tympanic membranes are normal and external auditory canals are clear. Oropharynx with no redness, swelling, or masses, exudates, or evidence of obstruction, uvula midline. Mucous membranes moist. Neck: Trachea midline, no thyromegaly or masses palpated, and no cervical lymphadenopathy. Supple, full range of motion without nuchal rigidity, or vertebral point tenderness. No Meningismus. Chest/axilla: Normal chest wall appearance and motion. Nontender with no deformity. No lesions are appreciated. Cardiovascular: Regular rate and rhythm with a normal S1 and S2. No gallops, murmurs, or rubs. Normal PMI, no JVD. No pulse deficits. Respiratory: Lungs have equal breath sounds bilaterally, clear to auscultation and percussion. No rales, rhonchi or wheezes noted. No increased work of breathing, no retractions or nasal flaring. Abdomen/GI: Soft, non-tender, with normal bowel sounds. No distension or tympany. No guarding or rebound. No evidence of tenderness throughout. Back: No spinal tenderness. No costovertebral tenderness. Full range of motion. Skin: Warm, dry with normal turgor. Normal color with no rashes, no lesions, and no evidence of cellulitis. 12:00 Musculoskeletal/extremity: Extremities: grossly normal except: Positive phalen and tinnels sign to right and left wrist, ROM: intact in all extremities, full active range of motion, in all extremities, full passive range of motion, in all extremities, Circulation is intact in all extremities. Sensation intact. Vital Signs: 11:21 BP 127 / 76; Pulse 78; Resp 18; Temp 98.7(O); Pulse Ox 98% on R/A; Weight 138.35 kg; hj Height 5 ft. 4 in. (162.56 cm); Pain 9/10; 12:18 BP 122 / 76; Pulse 77; Resp 16; Pulse Ox 98% on R/A; mb3 11:21 Body Mass Index 52.35 (138.35 kg, 162.56 cm) hj MDM: 11:31 Patient medically screened. pm1 11:44 Data reviewed: vital signs. Data interpreted: Pulse oximetry: on room air is 98 %. pm1 Interpretation: normal. Counseling: I had a detailed discussion with the patient and/or guardian regarding: the historical points, exam findings, and any diagnostic results supporting the discharge/admit diagnosis, the need for outpatient follow up, for definitive care, to return to the emergency department if symptoms worsen or persist or if there are any questions or concerns that arise at home. 03/19 11:40 Order name: Urine Dipstick--Ancillary (enter results); Complete Time: 11:46 pt 03/19 11:41 Order name: Urine --Ancillary (enter results); Complete Time: 11:46 pt Administered Medications: 12:05 Drug: Glennie 10 mg-325 mg 1 tabs Route: PO; mb3 12:16 Follow up: Response: No adverse reaction; Medication administered at discharge. mb3 Disposition: 17:33 Co-signature as Attending Physician, Miko Bray MD. rn Disposition: 03/19/18 11:45 Discharged to Home. Impression: Carpal tunnel syndrome. - Condition is Stable. - Discharge Instructions: Carpal Tunnel Syndrome, Wrist Splint, [id number]. - Prescriptions for Tylenol- Codeine #3 300-30 mg Oral Tablet - take 2 tablets by ORAL route every 6 hours As needed; 20 tablet. - Medication Reconciliation Form, Thank You Letter, Prescription Opioid Use form. - Follow up: Emergency Department; When: As needed; Reason: Worsening of condition. Follow up: Braeden Camacho MD; When: 2 - 3 days; Reason: Recheck today's complaints, Continuance of care, Re-evaluation by your physician. Follow up: Samuel Danielle MD; When: 2 - 3 days; Reason: Recheck today's complaints, Continuance of care, Re-evaluation by your physician. - Problem is new. - Symptoms have improved. Signatures: Dispatcher [employer] EDMS Miko Bray MD MD rn Joaquin, Henry, RN RN hj Marinas, Patrick, NP WIRE WALKER pm1 Darrick Doe RN RN mb3 Corrections: (The following items were deleted from the chart) 11:47 11:45 03/19/2018 11:45 Discharged to Home. Impression: Carpal tunnel syndrome. pm1 Condition is Stable. Forms are Medication Reconciliation Form, Thank You Letter, Antibiotic Education, Prescription Opioid Use. Follow up: Emergency Department; When: As needed; Reason: Worsening of condition. Follow up: Braeden Camacho; When: 2 - 3 days; Reason: Recheck today's complaints, Continuance of care, Re-evaluation by your physician. Problem is new. Symptoms have improved. pm1 12:19 11:47 03/19/2018 11:45 Discharged to Home. Impression: Carpal tunnel syndrome. mb3 Condition is Stable. Discharge Instructions: Carpal Tunnel Syndrome, Wrist Splint, [id number]. Prescriptions for Tylenol-Codeine #3 300-30 mg Oral Tablet - take 2 tablets by ORAL route every 6 hours As needed; 20 tablet. and Forms are Medication Reconciliation Form, Thank You Letter, Prescription Opioid Use. Follow up: Emergency Department; When: As needed; Reason: Worsening of condition. Follow up: Samuel Danielle; When: 2 - 3 days; Reason: Recheck today's complaints, Continuance of care, Re-evaluation by your physician. Problem is new. Symptoms have improved. pm1
--- NOTE | 2018-03-19 11:46 | ER ---
Nurse's Notes [facility] Name: Sweta Dai Age: 37 yrs Sex: Female : 1980 Arrival Date: 03/19/2018 Time: 11:11 Bed 17 Private MD: None, None Diagnosis: Carpal tunnel syndrome Presentation: 03/19 11:18 Presenting complaint: Patient states: my R arm is numb and on fire, its been going on hj for 4 days and its started on my R hand for month already; denies trauma to the area; reprots cervical spine issues; reports hx of carpal tunnel issue; denies chest pain; pain is 9/10;. Transition of care: patient was not received from another setting of care. Onset of symptoms was March 19, 2018. Risk Assessment: Do you want to hurt yourself or someone else? Patient reports no desire to harm self or others. Initial Sepsis Screen: Does the patient meet any 2 criteria? No. Patient's initial sepsis screen is negative. Does the patient have a suspected source of infection? No. Patient's initial sepsis screen is negative. Care prior to arrival: None. 11:18 Method Of Arrival: Ambulatory 11:18 Acuity: MIRA 4 hj Triage Assessment: 11:20 General: Appears in no apparent distress. uncomfortable, Behavior is calm, cooperative, hj appropriate for age. Pain: Complains of pain in right arm Pain currently is 9 out of 10 on a pain scale. 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 - Social history:: Smoking status: Patient uses tobacco products, smokes one-half pack cigarettes per day, Patient/guardian denies using alcohol. - Ebola Screening: : Patient negative for fever greater than or equal to 101.5 degrees Fahrenheit, and additional compatible Ebola Virus Disease symptoms Patient denies exposure to infectious person Patient denies travel to an Ebola-affected area in the 21 days before illness onset. Screenin:21 Abuse screen: Denies threats or abuse. Denies injuries from another. Nutritional hj screening: No deficits noted. Tuberculosis screening: No symptoms or risk factors identified. Fall Risk None identified. Assessment: 12:17 General: Appears in no apparent distress. comfortable, Behavior is calm, cooperative, mb3 appropriate for age. Pain: Complains of pain in right arm. Neuro: No deficits noted. Cardiovascular: No deficits noted. Respiratory: No deficits noted. GI: No deficits noted. No signs and/or symptoms were reported involving the gastrointestinal system. : No deficits noted. No signs and/or symptoms were reported regarding the genitourinary system. EENT: No deficits noted. No signs and/or symptoms were reported regarding the EENT system. Vital Signs: 11:21 BP 127 / 76; Pulse 78; Resp 18; Temp 98.7(O); Pulse Ox 98% on R/A; Weight 138.35 kg; hj Height 5 ft. 4 in. (162.56 cm); Pain 9/10; 12:18 BP 122 / 76; Pulse 77; Resp 16; Pulse Ox 98% on R/A; mb3 11:21 Body Mass Index 52.35 (138.35 kg, 162.56 cm) ED Course: 11:11 Patient arrived in ED. mr 11:11 None, None is Private Physician. mr 11:19 Triage completed. hj 11:21 Arm band placed on left wrist. hj 11:22 Patient has correct armband on for positive identification. Bed in low position. Call light in reach. Side rails up X 1. 11:26 Mode Guerrero NP is PHCP. pm1 11:26 Miko Bray MD is Attending Physician. pm1 11:29 Darrick Doe, TAMY is Primary Nurse. mb3 11:45 Braeden Camacho MD is Referral Physician. pm1 11:46 Referral Physician role handed off by Braeden Camacho MD pm1 11:47 Samuel Danielle MD is Referral Physician. pm1 12:19 No provider procedures requiring assistance completed. Patient did not have IV access mb3 during this emergency room visit. Administered Medications: 12:05 Drug: Clinton 10 mg-325 mg 1 tabs Route: PO; mb3 12:16 Follow up: Response: No adverse reaction; Medication administered at discharge. mb3 Outcome: 11:45 Discharge ordered by . pm1 12:18 Discharged to home ambulatory. mb3 12:18 Condition: stable 12:18 Discharge instructions given to patient, Instructed on discharge instructions, follow up and referral plans. medication usage, Demonstrated understanding of instructions, follow-up care, medications, Prescriptions given X 1. 12:19 Patient left the ED. mb3 Signatures: Anita Stone Joaquin Randle, RN RN hj Mode Guerrero, RAÚL SINGING WAITER OR WAITRESS pm1 Darrick Doe RN RN mb3 Corrections: (The following items were deleted from the chart) 11:24 11:21 Pulse 78bpm; Resp 18bpm; Pulse Ox 98% RA; Temp 98.7F Oral; 138.35 kg; Height 5 hj ft. 4 in.; BMI: 52.3; Pain 9/10; hj 11:24 11:21 Pulse 78bpm; Resp 18bpm; Pulse Ox 98% RA; Temp 98.7F Oral; 138.35 kg; Height 5 hj ft. 4 in.; BMI: 52.3; Pain 9/10; hj
[2018-03-19] MEDS ORDERED: HYDROCODONE/APAP 10/325 TAB ONE (12:06)
== END 2018-03-19 12:19 | disposition home or self-care (01) ==
LOC: ER 11:07
DX: G56.01 Carpal tunnel syndrome, right upper limb (principal); F17.210 Nicotine dependence, cigarettes, uncomplicated; Z88.6 Allergy status to analgesic agent; Z88.8 Allergy status to other drugs, medicaments and biological substances
CPT/HCPCS: 81003; 81025; 99283

== ENCOUNTER 2018-07-10 13:33 | Emergency (ER) | payer SELFPAY ==
[2018-07-10] MEDS ORDERED: DEXAMETHASONE 10 MG/ML VIAL ONE (15:41)
--- NOTE | 2018-07-10 17:04 | EDPHYS ---
Physician Documentation [facility] Name: Sweta Dai Age: 38 yrs Sex: Female : 1980 Arrival Date: 07/10/2018 Time: 13:35 Bed DIS1 Private MD: ED Physician Miko Bray HPI: 07/10 17:01 This 38 yrs old Female presents to ER via Ambulatory with complaints of snw Ear Pain. 17:01 The patient presents with pain, that is chronic. The complaints affect the right ear. snw Onset: The symptoms/episode began/occurred gradually. Associated signs and symptoms: Pertinent positives: decreased hearing acuity. Severity of symptoms: At their worst the symptoms were mild moderate. It is unknown whether or not the patient has had similar symptoms in the past. The patient has not recently seen a physician. 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 - Social history:: Smoking status: Patient uses tobacco products, denies chronic smoking, but will smoke occasionally. - Ebola Screening: : Patient negative for fever greater than or equal to 101.5 degrees Fahrenheit, and additional compatible Ebola Virus Disease symptoms Patient denies exposure to infectious person Patient denies travel to an Ebola-affected area in the 21 days before illness onset No symptoms or risks identified at this time. ROS: 17:00 Constitutional: Negative for fever, chills, and weight loss, Eyes: Negative for injury, snw pain, redness, and discharge, ENT: Negative for injury and discharge, long standing right ear pain, left ear pain x 1 day Neck: Negative for injury, pain, and swelling, Cardiovascular: Negative for chest pain, palpitations, and edema, Respiratory: Negative for shortness of breath, cough, wheezing, and pleuritic chest pain, Abdomen/GI: Negative for abdominal pain, nausea, vomiting, diarrhea, and constipation, Back: Negative for injury and pain, : Negative for injury, bleeding, discharge, and swelling, MS/Extremity: Negative for injury and deformity, Skin: Negative for injury, rash, and discoloration, Neuro: Negative for headache, weakness, numbness, tingling, and seizure. Exam: 16:55 Constitutional: This is a well developed, well nourished patient who is awake, alert, snw and in no acute distress. Head/Face: Normocephalic, atraumatic. Eyes: Pupils equal round and reactive to light, extra-ocular motions intact. Lids and lashes normal. Conjunctiva and sclera are non-icteric and not injected. Cornea within normal limits. Periorbital areas with no swelling, redness, or edema. Neck: Trachea midline, no thyromegaly or masses palpated, and no cervical lymphadenopathy. Supple, full range of motion without nuchal rigidity, or vertebral point tenderness. No Meningismus. Chest/axilla: Normal chest wall appearance and motion. Nontender with no deformity. No lesions are appreciated. Cardiovascular: Regular rate and rhythm with a normal S1 and S2. No gallops, murmurs, or rubs. Normal PMI, no JVD. No pulse deficits. Respiratory: Lungs have equal breath sounds bilaterally, clear to auscultation and percussion. No rales, rhonchi or wheezes noted. No increased work of breathing, no retractions or nasal flaring. Abdomen/GI: Soft, non-tender, with normal bowel sounds. No distension or tympany. No guarding or rebound. No evidence of tenderness throughout. Back: No spinal tenderness. No costovertebral tenderness. Full range of motion. Skin: Warm, dry with normal turgor. Normal color with no rashes, no lesions, and no evidence of cellulitis. MS/ Extremity: Pulses equal, no cyanosis. Neurovascular intact. Full, normal range of motion. Neuro: Awake and alert, GCS 15, oriented to person, place, time, and situation. Cranial nerves II-XII grossly intact. Motor strength 5/5 in all extremities. Sensory grossly intact. Cerebellar exam normal. Normal gait. Psych: Awake, alert, with orientation to person, place and time. Behavior, mood, and affect are within normal limits. 16:55 ENT: External ear(s): are unremarkable, Ear canal(s): are normal, TM's: decreased mobility, erythema, that is moderate, on the left, Nose: is normal, Mouth: is normal, Posterior pharynx: is normal, Voice: is normal. Vital Signs: 14:56 BP 120 / 77; Pulse 74; Resp 16 S; Temp 97.4(O); Pulse Ox 99% on R/A; Weight 138.35 kg; iw Height 5 ft. 4 in. (162.56 cm); Pain 8/10; 17:30 BP 112 / 78; Pulse 88; Resp 18; Temp 98.1(O); Pulse Ox 100% on R/A; Pain 0/10; mg2 14:56 Body Mass Index 52.35 (138.35 kg, 162.56 cm) iw MDM: 15:09 Patient medically screened. snw 17:05 Data reviewed: vital signs, nurses notes. Data interpreted: Pulse oximetry: on room air snw is 99 %. Interpretation: normal. Counseling: I had a detailed discussion with the patient and/or guardian regarding: the historical points, exam findings, and any diagnostic results supporting the discharge/admit diagnosis, the need for outpatient follow up, to return to the emergency department if symptoms worsen or persist or if there are any questions or concerns that arise at home. Special discussion: Based on the history and exam findings, there is no indication for further emergent testing or inpatient evaluation. I discussed with the patient/guardian the need to see the ENT specialist for further evaluation of the symptoms. I discussed with the patient/guardian the need to see the primary care provider for further evaluation of the symptoms. Administered Medications: 15:35 Drug: Decadron - Dexamethasone 10 mg {Note: po.} Route: IVP; Site: Other; mg2 17:54 Follow up: Response: No adverse reaction; Marked relief of symptoms mg2 Disposition: 18:53 Co-signature as Attending Physician, Miko Bray MD. rn Disposition: 07/10/18 17:03 Discharged to Home. Impression: Otalgia, right ear. - Condition is Stable. - Discharge Instructions: Earache, Adult. - Prescriptions for Prednisone 20 mg Oral Tablet - take 1 tablet by ORAL route every 12 hours for 5 days; 10 tablet. - Medication Reconciliation Form, Thank You Letter, Antibiotic Education, Prescription Opioid Use form. - Follow up: Private Physician; When: 2 - 3 days; Reason: Recheck today's complaints, Continuance of care, Re-evaluation by your physician. Follow up: Emergency Department; When: As needed; Reason: Worsening of condition. Signatures: Donya Fisher, DISPENSARY TECHNICIAN-C DISPENSARY TECHNICIAN-Csnw Kyra Peck RN RN iw Miko Bray MD MD rn Gardose, Michele, RN RN mg2 Corrections: (The following items were deleted from the chart) 17:54 17:03 07/10/2018 17:03 Discharged to Home. Impression: Otalgia, right ear. Condition is mg2 Stable. Forms are Medication Reconciliation Form, Thank You Letter, Antibiotic Education, Prescription Opioid Use. Follow up: Private Physician; When: 2 - 3 days; Reason: Recheck today's complaints, Continuance of care, Re-evaluation by your physician. Follow up: Emergency Department; When: As needed; Reason: Worsening of condition. snw
--- NOTE | 2018-07-10 17:04 | ER ---
Nurse's Notes [facility] Emergency Department Name: Sweta Dai Age: 38 yrs Sex: Female : 1980 Arrival Date: 07/10/2018 Time: 13:35 Bed DIS1 Private MD: Diagnosis: Otalgia, right ear Presentation: 07/10 14:30 Presenting complaint: Patient states: right ear pain X 1 month, now only hears wooshing iw sound, also started having pain in left ear. Transition of care: patient was not received from another setting of care. Onset of symptoms was May 2018. Risk Assessment: Do you want to hurt yourself or someone else? Patient reports no desire to harm self or others. Initial Sepsis Screen: Does the patient meet any 2 criteria? No. Patient's initial sepsis screen is negative. Does the patient have a suspected source of infection? No. Patient's initial sepsis screen is negative. Care prior to arrival: None. 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 - Social history:: Smoking status: Patient uses tobacco products, denies chronic smoking, but will smoke occasionally. - Ebola Screening: : Patient negative for fever greater than or equal to 101.5 degrees Fahrenheit, and additional compatible Ebola Virus Disease symptoms Patient denies exposure to infectious person Patient denies travel to an Ebola-affected area in the 21 days before illness onset No symptoms or risks identified at this time. Screenin:01 Abuse screen: Denies threats or abuse. Denies injuries from another. Nutritional iw screening: No deficits noted. Tuberculosis screening: No symptoms or risk factors identified. Fall Risk None identified. Assessment: 15:01 General: Appears in no apparent distress. comfortable, Behavior is calm, cooperative. iw Pain: Complains of pain in right ear Pain currently is 8 out of 10 on a pain scale. Neuro: Level of Consciousness is awake, alert, obeys commands. Cardiovascular: Patient's skin is warm and dry. Respiratory: Respiratory effort is even, unlabored, Respiratory pattern is regular, symmetrical. EENT: Reports pain in right ear and left ear. Derm: Skin is intact, is healthy with good turgor. Musculoskeletal: Range of motion: intact in all extremities. Vital Signs: 14:56 BP 120 / 77; Pulse 74; Resp 16 S; Temp 97.4(O); Pulse Ox 99% on R/A; Weight 138.35 kg; iw Height 5 ft. 4 in. (162.56 cm); Pain 8/10; 17:30 BP 112 / 78; Pulse 88; Resp 18; Temp 98.1(O); Pulse Ox 100% on R/A; Pain 0/10; mg2 14:56 Body Mass Index 52.35 (138.35 kg, 162.56 cm) iw ED Course: 13:35 Patient arrived in ED. rg4 14:06 Patient's name was called from ER lobby. No response. sv 14:27 Kyra Peck, TAMY is Primary Nurse. iw 14:32 Triage completed. iw 14:56 Arm band placed on. iw 15:01 Patient has correct armband on for positive identification. iw 15:04 [facility] snw 15:04 Miko Bray MD is Attending Physician. snw 16:37 No provider procedures requiring assistance completed. Patient did not have IV access mg2 during this emergency room visit. Administered Medications: 15:35 Drug: Decadron - Dexamethasone 10 mg {Note: po.} Route: IVP; Site: Other; mg2 17:54 Follow up: Response: No adverse reaction; Marked relief of symptoms mg2 Outcome: 17:03 Discharge ordered by . snw 17:37 Discharged to home ambulatory, with family. mg2 17:37 Condition: stable 17:37 Discharge instructions given to patient, family, Instructed on discharge instructions, follow up and referral plans. medication usage, Demonstrated understanding of instructions, follow-up care, medications, Prescriptions given X 1. 17:54 Patient left the ED. mg2 Signatures: Clementina Rainey RN RN sv Donya Fisher, [employer] Kyra Pekc, RN RN dereck Crocker, Leonie rg4 Alessio León, RN RN mg2
== END 2018-07-10 17:54 | disposition home or self-care (01) ==
LOC: ER 13:33
DX: H92.01 Otalgia, right ear (principal); Z72.0 Tobacco use; Z88.5 Allergy status to narcotic agent; Z88.8 Allergy status to other drugs, medicaments and biological substances
CPT/HCPCS: 96374; 99283; J1100